=== PATIENT | male | born 1955 ===

== ENCOUNTER 2022-01-07 12:41 | Inpatient (IN) ==
[2022-01-07] MEDS ORDERED: ACETAMINOPHEN 325 MG TABLET PO PRN (14:36)
[2022-01-07] MEDS ORDERED: GLUCAGON 1 MG VIAL IM PRN (14:36)
[2022-01-07] MEDS ORDERED: DEXTROSE 10% 250 ML BAG IV PRN (14:43)
[2022-01-07] MEDS ORDERED: MORPHINE 2 MG/1 ML SYRINGE IV STA (14:55)
[2022-01-07] MEDS: ONDANSETRON 4 MG/2 ML VIAL IV PRN ×2 (15:06→21:00)
[2022-01-07] MEDS: HEPARIN 5,000 UNIT/1 ML VIAL SUBCUT SCH (15:07)
[2022-01-07] MEDS: INSULIN LISPRO 100 UNIT/ML SUBCUT SCH ×2 (18:00→21:09)
[2022-01-07 18:41] LABS: Hepatitis B Core IgM Quant 0.14 Index; Hepatitis B Surface Ag Quant < 0.10 Index; Hepatitis B Surface Ag Result Non-Reactive (NonReactive); Hepatitis C Virus Ab Quant 0.03 Index; Hepatitis C Virus Ab Result Non-Reactive (NonReactive)
[2022-01-07] MEDS: SIMVASTATIN 20 MG TABLET PO SCH (20:56)
[2022-01-07] MEDS: MORPHINE 2 MG/1 ML SYRINGE IV PRN (20:58)
[2022-01-08] MEDS: HEPARIN 5,000 UNIT/1 ML VIAL SUBCUT SCH ×2 (03:48→21:13)
[2022-01-08 05:11] LABS: Basophils # 0.1 10*3/uL (0.0-0.2); Basophils % 0.6 % (0.0-0.8); Eosinophils # 0.4 10*3/uL (0.0-0.87); Eosinophils % 4.4 % (0.00-10.9); Hematocrit 35.4 VOL% (42.0-52.0); Hemoglobin 11.9 GM/DL (14.0-18.0); Immature Granulocytes % 0.5 %; Immature Granulocytes Absolute 0.05 #; Lymphocytes # 2.4 10*3/uL (1.4-4.0); Lymphocytes % 24.5 % (21.2-54.2); Mean Corpuscular HGB Conc 33.6 GM/DL (32-36); Mean Corpuscular Volume 104.1 FL (87-102); Mean Platelet Volume 10.2 FL (9.6-12.0); Monocytes # 0.9 10*3/uL (0.11-0.8); Platelet Count 239 T/CUMM (130-400); Red Cell Distribution Width 12.4 % (9.3-17.3); White Blood Count 9.8 T/CUMM (4-12)
[2022-01-08 05:40] LABS: Risk Ratio 5.23; VLDL Cholesterol 53.6 MG/DL
[2022-01-08 05:56] LABS: Albumin 3.8 G/DL (3.4-5.0); Bilirubin,Total 0.5 MG/DL (0.20-1.00); Calcium 8.9 MG/DL (8.5-10.1); Osmolality,Calculated 282.1 MOS/KG (273-304); Potassium 5.9 MMOL/L (3.5-5.1); Total Protein 7.6 G/DL (6.4-8.2)
[2022-01-08] MEDS ORDERED: SODIUM POLYSTYRENE SULFATE 15 GM/60 ML BOTTLE PO SCH (08:00)
[2022-01-08] MEDS: METOPROLOL SUCCINATE XL 50 MG TABLET PO SCH (08:57)
[2022-01-08] MEDS: PANTOPRAZOLE 40 MG TABLET PO SCH (08:57)
[2022-01-08] MEDS: INSULIN LISPRO 100 UNIT/ML SUBCUT SCH ×4 (08:57→21:16)
[2022-01-08] MEDS ORDERED: INSULIN REGULAR 10 UNIT, CALCIUM GLUCONATE 1,000 MG in DEXTROSE 10% 250 ML IV ONE (09:00)
[2022-01-08] MEDS: SEVELAMER CARBONATE 800 MG TABLET PO SCH ×2 (12:47→17:20)
[2022-01-08] MEDS ORDERED: SODIUM ZIRCONIUM CYCLOSILICATE 10 GM PACK PO ONE (15:00)
[2022-01-08] MEDS: MORPHINE 2 MG/1 ML SYRINGE IV PRN (15:56)
[2022-01-08] MEDS: SIMVASTATIN 20 MG TABLET PO SCH (21:12)
[2022-01-09 05:00] LABS: Basophils # 0.1 10*3/uL (0.0-0.2); Basophils % 0.6 % (0.0-0.8); Eosinophils # 0.3 10*3/uL (0.0-0.87); Hematocrit 32.4 VOL% (42.0-52.0); Hemoglobin 11.2 GM/DL (14.0-18.0); Immature Granulocytes % 0.3 %; Immature Granulocytes Absolute 0.02 #; Lymphocytes # 2.6 10*3/uL (1.4-4.0); Lymphocytes % 33.4 % (21.2-54.2); Mean Corpuscular HGB Conc 34.6 GM/DL (32-36); Mean Corpuscular Volume 101.9 FL (87-102); Mean Platelet Volume 10.3 FL (9.6-12.0); Monocytes # 0.7 10*3/uL (0.11-0.8); Monocytes % 8.6 % (1.7-12.7); Neutrophils % 53.1 % (38.7-73.9); Platelet Count 215 T/CUMM (130-400); Red Blood Count 3.18 MC/CUMM (3.8-5.5); White Blood Count 7.8 T/CUMM (4-12)
[2022-01-09 05:27] LABS: Calcium 8.4 MG/DL (8.5-10.1); Osmolality,Calculated 276.7 MOS/KG (273-304)
[2022-01-09] MEDS: LEVOTHYROXINE 75 MCG TABLET PO SCH (05:46)
[2022-01-09] MEDS: INSULIN LISPRO 100 UNIT/ML SUBCUT SCH ×4 (07:43→20:25)
[2022-01-09] MEDS: SEVELAMER CARBONATE 800 MG TABLET PO SCH ×3 (08:18→16:44)
[2022-01-09] MEDS: PANTOPRAZOLE 40 MG TABLET PO SCH (08:18)
[2022-01-09] MEDS: CHOLECALCIFEROL 1,000 UNIT TABLET PO SCH (08:18)
[2022-01-09] MEDS: HEPARIN 5,000 UNIT/1 ML VIAL SUBCUT SCH ×2 (08:20→20:25)
[2022-01-09] MEDS: MORPHINE 2 MG/1 ML SYRINGE IV PRN (08:24)
[2022-01-09 10:28] LABS: Alanine Aminotransferase 32 U/L (16-61); Albumin 3.6 G/DL (3.4-5.0); Alkaline Phosphatase 128 U/L (45-117); Aspartate Amino Transferase 20 U/L (0-37); Bilirubin,Direct < 0.100 MG/DL (0.0-0.20); Bilirubin,Indirect 0.3 MG/DL (0.0-1.0); Total Protein 7.6 G/DL (6.4-8.2)
[2022-01-09] MEDS: METOPROLOL SUCCINATE XL 50 MG TABLET PO SCH (14:28)
[2022-01-09] MEDS: SIMVASTATIN 20 MG TABLET PO SCH (20:25)
[2022-01-10] MEDS: LEVOTHYROXINE 75 MCG TABLET PO SCH (05:41)
[2022-01-10 06:12] LABS: Albumin 3.2 G/DL (3.4-5.0); Bilirubin,Direct 0.1 MG/DL (0.0-0.20); Bilirubin,Indirect 0.3 MG/DL (0.0-1.0); Bilirubin,Total 0.4 MG/DL (0.20-1.00); Osmolality,Calculated 272.8 MOS/KG (273-304); Potassium 4.8 MMOL/L (3.5-5.1); Total Protein 6.9 G/DL (6.4-8.2)
[2022-01-10] MEDS: SEVELAMER CARBONATE 800 MG TABLET PO SCH ×2 (07:55→11:38)
[2022-01-10] MEDS: CHOLECALCIFEROL 1,000 UNIT TABLET PO SCH ×2 (07:56→08:37)
[2022-01-10] MEDS: PANTOPRAZOLE 40 MG TABLET PO SCH ×2 (07:56→08:37)
[2022-01-10] MEDS: HEPARIN 5,000 UNIT/1 ML VIAL SUBCUT SCH ×2 (07:57→08:38)
[2022-01-10] MEDS: INSULIN LISPRO 100 UNIT/ML SUBCUT SCH ×2 (07:57→11:39)
[2022-01-10] MEDS: ONDANSETRON 4 MG/2 ML VIAL IV PRN (07:58)
[2022-01-10] MEDS: MORPHINE 2 MG/1 ML SYRINGE IV PRN (07:58)
[2022-01-10 08:40] VITALS: BP 111/61
[2022-01-10] MEDS ORDERED: METOPROLOL SUCCINATE XL 25 MG TABLET PO SCH (21:00)
== END 2022-01-10 13:16 | disposition home or self-care (01) | DRG 438 ==
LOC: EDBD → EDUNIT# → N.ED 12:41 → N.EDINP 14:36 → N.5E 16:03
PROVIDERS: ADMIT Internal Medicine; ATTEND Internal Medicine